=== PATIENT | female | born 1995 | race Caucasian/White ===

== ENCOUNTER 2019-06-17 02:30 | Observation (INO) | payer OTHER ==
[~2019-06-17] VITALS: Ht 157.5 cm; Wt 101.6 kg
[2019-06-17 03:56] LABS: BILIRUBIN,URINE NEGATIVE (NEGATIVE); CLARITY/URINE CLEAR (CLEAR); COLOR,URINE YELLOW (YELLOW); GLUCOSE,URINE NEGATIVE (NEGATIVE); KETONES,URINE NEGATIVE (NEGATIVE); LEUKOCYTE ESTERASE ,URINE TRACE (NEGATIVE); NITRITE, URINE NEGATIVE (NEGATIVE); PROTEIN URINE NEGATIVE (NEGATIVE); UROBILINOGEN,URINE 0.2 (0.2-1.0)
[2019-06-17 03:57] LABS: BLOOD, URINE TRACE (NEGATIVE)
[2019-06-17 04:02] LABS: BACTERIA,URINE FEW /HPF (None Seen)
[2019-06-17] MEDS ORDERED: AMPICILLIN SODIUM 250 MG VIAL IM ONE (04:15)
[2019-06-17] MEDS ORDERED: TERBUTALINE SULFATE 1 MG/ML VIAL SUBCUT PRN (04:15)
[2019-06-17] MEDS ORDERED: TERBUTALINE SULFATE 2.5 MG TABLET PO PRN (04:15)
== END 2019-06-17 05:24 | disposition home or self-care (01) ==
LOC: SPU 02:30
PROVIDERS: ADMIT Obstetrics & Gynecology; ATTEND Obstetrics & Gynecology
DX: O26.893 Other specified pregnancy related conditions, third trimester (principal); R10.9 Unspecified abdominal pain; Z3A.35 35 weeks gestation of pregnancy
CPT/HCPCS: 81000; 81002; 96372; G0378; J3105; 59899

== ENCOUNTER 2019-07-02 23:00 | Observation (INO) | payer OTHER | END 2019-07-03 09:25 | disposition home or self-care (01) | LOC: SPU 23:00 | PROVIDERS: ADMIT Obstetrics & Gynecology; ATTEND Obstetrics & Gynecology | DX: O62.9 Abnormality of forces of labor, unspecified (principal); Z3A.38 38 weeks gestation of pregnancy | CPT/HCPCS: 76819; 81002; G0378 ==

== ENCOUNTER 2021-06-21 22:10 | Inpatient (IN) | payer OTHER ==
[~2021-06-21] VITALS: Ht 154.9 cm; Wt 108.9 kg
[2021-06-21] MEDS ORDERED: MORPHINE SULFATE 10 MG/ML VIAL IVP ONE (22:30)
[2021-06-21] MEDS ORDERED: ONDANSETRON HCL 4 MG/2 ML VIAL IVP ONE (22:30)
[2021-06-21] MEDS ORDERED: NACL 0.9% 1,000 ML IV ONE (22:30)
[2021-06-21 22:51] LABS: BASOPHILS # (AUTO) 0.1 K/uL (0.0-0.2); BASOPHILS % (AUTO) 1.9 % (0.0-2.0); EOSINOPHILS # (AUTO) 0.1 K/uL (0.0-0.4); EOSINOPHILS % (AUTO) 1.6 % (0.0-4.0); HEMATOCRIT 39.3 % (36-48); HEMOGLOBIN 13.2 g/dL (12.0-16.0); LYMPHOCYTES # (AUTO) 1.5 K/uL (1.0-5.5); LYMPHOCYTES % (AUTO) 25.8 % (20.5-51.5); MEAN CORPUSCULAR HEMOGLOBIN 29 pg (27-31); MEAN CORPUSCULAR HGB CONC 34 % (32-36); MEAN CORPUSCULAR VOLUME 87 fL (79.0-98.0); MONOCYTES # (AUTO) 0.3 K/uL (0.0-1.0); MONOCYTES % (AUTO) 5.4 % (1.7-9.3); NEUTROPHILS # (AUTO) 3.7 K/uL (1.8-7.7); NEUTROPHILS % (AUTO) 65.3 % (40.0-70.0); PLATELET COUNT (AUTO) 331 K/uL (130-430); RED BLOOD CELL COUNT(AUTO) 4.52 MIL/uL (4.2-6.2); RED CELL DISTRIBUTION WIDTH 13.2 % (9.0-15.0); WHITE BLOOD COUNT (AUTO) 5.6 K/uL (4.8-10.8)
[2021-06-21 23:14] LABS: CALCIUM 8.8 mg/dL (8.4-11.0); CREATININE 0.91 mg/dL (0.55-1.30); POTASSIUM 3.4 mmol/L (3.5-5.1)
[2021-06-21 23:26] LABS: ALBUMIN 3.5 g/dL (3.4-4.8); TOTAL BILIRUBIN 4.8 mg/dL (0.0-1.0)
[2021-06-22] MEDS ORDERED: METOCLOPRAMIDE HCL 10 MG/2 ML VIAL IVP ONE
[2021-06-22 00:15] LABS: BILIRUBIN,URINE 2+ (NEGATIVE); BLOOD, URINE NEGATIVE (NEGATIVE); CLARITY/URINE CLEAR (CLEAR); COLOR,URINE YELLOW (YELLOW); GLUCOSE,URINE NEGATIVE (NEGATIVE); KETONES,URINE TRACE (NEGATIVE); LEUKOCYTE ESTERASE ,URINE 2+ (NEGATIVE); NITRITE, URINE NEGATIVE (NEGATIVE); PROTEIN URINE NEGATIVE (NEGATIVE)
[2021-06-22 00:43] LABS: BACTERIA,URINE FEW /HPF (None Seen); RBC,URINE 0-3 /HPF (0-3)
[2021-06-22] MEDS ORDERED: cefTRIAXone 1 GM in D5W 50 ML IV ONE (02:15)
[2021-06-22] MEDS ORDERED: MORPHINE 2 MG/ML INJ. SYRINGE IVP PRN ×3 (03:15→23:45)
[2021-06-22] MEDS ORDERED: D5/0.45 NS 1,000 ML IV ONE (03:15)
[2021-06-22] MEDS ORDERED: cefTRIAXone 1 GM VIAL ONE (03:22)
[2021-06-22] MEDS ORDERED: LORazepam 2 MG/ML VIAL IVP PRN (06:30)
[2021-06-22 06:35] VITALS: BP_SYST 118
[2021-06-22] MEDS ORDERED: NEOSTIGMINE METHYLSULFATE 1 MG/ML, 10 ML VIAL IVP ONE (07:15)
[2021-06-22] MEDS ORDERED: CEFAZOLIN 2 GM IVPB PREMIX 50 ML IV ONE (07:15)
[2021-06-22] MEDS ORDERED: GLYCOPYRROLATE 0.2 MG/ML VIAL IJ ONE (07:15)
[2021-06-22] MEDS ORDERED: PROPOFOL 200MG/ 20ML VIAL (DIPRIVAN) IV ONE (07:15)
[2021-06-22] MEDS ORDERED: MIDAZOLAM HCL 5 MG/5 ML VIAL IVP ONE (07:15)
[2021-06-22] MEDS ORDERED: NS IRRIG SOLN 1000 ML IR ONE (07:15)
[2021-06-22] MEDS ORDERED: LIDOCAINE/EPI 1% 1:100000 20 ML VIAL INJ ONE (07:15)
[2021-06-22] MEDS ORDERED: BUPIVACAINE /PF 0.25% 10 ML VIAL INJ ONE (07:15)
[2021-06-22] MEDS ORDERED: ROCURONIUM BROMIDE 10 MG/ML (ZEMURON) IV ONE (07:15)
[2021-06-22] MEDS ORDERED: ONDANSETRON HCL 4 MG/2 ML VIAL IVP ONE (07:15)
[2021-06-22] MEDS ORDERED: SEVOFLURANE 15 MIN GAS INH ONE (07:15)
[2021-06-22] MEDS ORDERED: fentaNYL CITRATE 250 MCG/5 ML AMP IV ONE (07:15)
[2021-06-22 08:00] VITALS: BP_SYST 121
[2021-06-22] MEDS: D5NS 1,000 ML IV SCH (18:44)
[2021-06-22 20:00] VITALS: BP_SYST 123
[2021-06-22] MEDS: ONDANSETRON HCL 4 MG/2 ML VIAL IVP PRN (22:31)
[2021-06-23] VITALS (8 sets, daily range): BP systolic 102–130
[2021-06-23 06:29] LABS: BASOPHILS % (AUTO) 0.4 % (0.0-2.0); EOSINOPHILS # (AUTO) 0.1 K/uL (0.0-0.4); EOSINOPHILS % (AUTO) 2.2 % (0.0-4.0); HEMATOCRIT 37.9 % (36-48); HEMOGLOBIN 12.5 g/dL (12.0-16.0); LYMPHOCYTES # (AUTO) 2.1 K/uL (1.0-5.5); LYMPHOCYTES % (AUTO) 36.1 % (20.5-51.5); MEAN CORPUSCULAR HEMOGLOBIN 29 pg (27-31); MEAN CORPUSCULAR HGB CONC 33 % (32-36); MEAN CORPUSCULAR VOLUME 88 fL (79.0-98.0); MONOCYTES # (AUTO) 0.5 K/uL (0.0-1.0); MONOCYTES % (AUTO) 8.7 % (1.7-9.3); NEUTROPHILS # (AUTO) 3.1 K/uL (1.8-7.7); NEUTROPHILS % (AUTO) 52.6 % (40.0-70.0); PLATELET COUNT (AUTO) 316 K/uL (130-430); RED BLOOD CELL COUNT(AUTO) 4.32 MIL/uL (4.2-6.2); RED CELL DISTRIBUTION WIDTH 13.4 % (9.0-15.0); WHITE BLOOD COUNT (AUTO) 5.8 K/uL (4.8-10.8)
[2021-06-23 06:51] LABS: ALBUMIN 2.9 g/dL (3.4-4.8); CALCIUM 8.4 mg/dL (8.4-11.0); CREATININE 0.8 mg/dL (0.55-1.30); PHOSPHORUS 3.9 mg/dL (2.7-4.5); POTASSIUM 3.3 mmol/L (3.5-5.1); TOTAL BILIRUBIN 0.7 mg/dL (0.0-1.0)
[2021-06-23 07:19] LABS: PROTHROMBIN TIME 10.2 SECS (9.5-12.5)
[2021-06-23] MEDS ORDERED: INDOMETHACIN 50 MG SUPP.RECT RC ONE (08:30)
[2021-06-23] MEDS ORDERED: KCL 40 mEq in 100 mL (PREMIX) 100 ML IV ONE (10:15)
[2021-06-23] MEDS: D5NS 1,000 ML IV SCH (10:32)
[2021-06-23] MEDS ORDERED: POTASSIUM CHLORIDE 40 MEQ in NS 250 ML IV ONE (11:00)
[2021-06-23 12:30] LABS: HCG,QUAL RESULT NEGATIVE (NEGATIVE)
[2021-06-23] MEDS ORDERED: LABETALOL 100 MG/ 20ML VIAL IVP PRN (13:15)
[2021-06-23] MEDS ORDERED: MIDAZOLAM HCL 2 MG/2 ML VIAL (VERSED) IVP PRN (13:15)
[2021-06-23] MEDS ORDERED: LR 1,000 ML IV SCH (13:15)
[2021-06-23] MEDS ORDERED: METOCLOPRAMIDE HCL 10 MG/2 ML VIAL IVP PRN (13:15)
[2021-06-23] MEDS ORDERED: hydrALAZINE HCL 20 MG/ML VIAL IVP PRN (13:15)
[2021-06-23] MEDS ORDERED: HYDROmorphone 1 MG/ML INJ. CARTRIDGE IVP PRN ×2 (13:15)
[2021-06-23] MEDS ORDERED: MEPERIDINE HCL/PF 25 MG/ML DISP.SYRIN IVP PRN (13:15)
[2021-06-23] MEDS: LR 1,000 ML IV SCH (13:45)
[2021-06-23] MEDS ORDERED: LIDOCAINE 1% 10 MG/ML, 20 ML MDV ONE (13:56)
[2021-06-23] MEDS ORDERED: METOPROLOL TARTRATE 5 MG/5 ML AMPUL ONE (13:56)
[2021-06-23] MEDS ORDERED: LR 1,000 ML IV.SOLN IV ONE (13:56)
[2021-06-23] MEDS ORDERED: DEXAMETHASONE SOD PHOSPHATE 4 MG/ML VIAL ONE (13:56)
[2021-06-23] MEDS ORDERED: ONDANSETRON HCL 4 MG/2 ML VIAL ONE (13:56)
[2021-06-23] MEDS ORDERED: KETOROLAC TROMETHAMINE 30 MG VIAL ONE (13:56)
[2021-06-23] MEDS ORDERED: KETAMINE HCL 500 MG/10 ML VIAL IVP ONE (13:56)
[2021-06-23] MEDS ORDERED: SUGAMMADEX SODIUM 200 MG/2 ML VIAL IV ONE (13:56)
[2021-06-23] MEDS ORDERED: fentaNYL CITRATE/PF 100 MCG/2 ML AMP ONE (13:56)
[2021-06-23] MEDS ORDERED: MIDAZOLAM HCL 5 MG/ML VIAL (VERSED) IV ONE (13:56)
[2021-06-23] MEDS ORDERED: PROPOFOL 200MG/ 20ML VIAL (DIPRIVAN) IV ONE (13:56)
[2021-06-23] MEDS ORDERED: DESFLURANE 15 MIN GAS INH ONE (13:56)
[2021-06-23] MEDS ORDERED: ROCURONIUM BROMIDE 10 MG/ML (ZEMURON) ONE (13:56)
[2021-06-23] MEDS: ONDANSETRON HCL 4 MG/2 ML VIAL IVP PRN (14:20)
[2021-06-23] MEDS ORDERED: METOCLOPRAMIDE HCL 10 MG/2 ML VIAL ONE (14:25)
[2021-06-23] MEDS: cefTRIAXone 1 GM in D5W 50 ML IV SCH (15:18)
[2021-06-24 00:17] VITALS: BP_SYST 120
[2021-06-24 06:51] LABS: BASOPHILS % (AUTO) 0.2 % (0.0-2.0); EOSINOPHILS % (AUTO) 0.1 % (0.0-4.0); HEMATOCRIT 38.6 % (36-48); HEMOGLOBIN 12.6 g/dL (12.0-16.0); LYMPHOCYTES # (AUTO) 1.7 K/uL (1.0-5.5); LYMPHOCYTES % (AUTO) 18.8 % (20.5-51.5); MEAN CORPUSCULAR HEMOGLOBIN 28 pg (27-31); MEAN CORPUSCULAR HGB CONC 33 % (32-36); MEAN CORPUSCULAR VOLUME 87 fL (79.0-98.0); MONOCYTES # (AUTO) 0.5 K/uL (0.0-1.0); NEUTROPHILS # (AUTO) 6.8 K/uL (1.8-7.7); NEUTROPHILS % (AUTO) 74.9 % (40.0-70.0); PLATELET COUNT (AUTO) 322 K/uL (130-430); RED BLOOD CELL COUNT(AUTO) 4.45 MIL/uL (4.2-6.2); WHITE BLOOD COUNT (AUTO) 9.1 K/uL (4.8-10.8)
[2021-06-24] MEDS ORDERED: fentaNYL CITRATE/PF 100 MCG/2 ML AMP IVP PRN ×2 (07:30)
[2021-06-24] MEDS ORDERED: ONDANSETRON HCL 4 MG/2 ML VIAL IVP PRN (07:30)
[2021-06-24] MEDS ORDERED: METOCLOPRAMIDE HCL 10 MG/2 ML VIAL IVP PRN (07:30)
[2021-06-24] MEDS ORDERED: HYDROmorphone 1 MG/ML INJ. CARTRIDGE IVP PRN (07:45)
[2021-06-24] MEDS ORDERED: HYDROcodone/ACETAMIN 5-325 MG TAB (NORCO/ VICODIN) PO PRN (07:45)
[2021-06-24 08:20] LABS: ALBUMIN 2.9 g/dL (3.4-4.8); C-REACTIVE PROTEIN QUANT 1.4 mg/dL (0-0.5); CALCIUM 8.6 mg/dL (8.4-11.0); CREATININE 0.7 mg/dL (0.55-1.30); TOTAL BILIRUBIN 0.6 mg/dL (0.0-1.0)
[2021-06-24] MEDS ORDERED: fentaNYL CITRATE/PF 100 MCG/2 ML AMP ONE (08:36)
[2021-06-24 09:41] LABS: ERYTHROCYTE SEDIMENTATION RATE 34 MM/HR (0-20)
[2021-06-24] MEDS: LR 1,000 ML IV SCH ×3 (10:26→19:30)
[2021-06-24 12:00] VITALS: BP_SYST 122
[2021-06-24] MEDS: cefTRIAXone 1 GM in D5W 50 ML IV SCH (12:36)
[2021-06-24 16:54] VITALS: BP_SYST 124
[2021-06-24 20:00] VITALS: BP_SYST 114
[2021-06-24] MEDS: ONDANSETRON HCL 4 MG/2 ML VIAL IVP PRN (20:23)
[2021-06-25 00:02] VITALS: BP_SYST 102
[2021-06-25] MEDS: LR 1,000 ML IV SCH (02:15)
[2021-06-25 06:42] LABS: BASOPHILS % (AUTO) 0.2 % (0.0-2.0); HEMATOCRIT 27.4 % (36-48); HEMOGLOBIN 9.1 g/dL (12.0-16.0); LYMPHOCYTES # (AUTO) 2.4 K/uL (1.0-5.5); LYMPHOCYTES % (AUTO) 21.8 % (20.5-51.5); MEAN CORPUSCULAR HEMOGLOBIN 29 pg (27-31); MEAN CORPUSCULAR HGB CONC 33 % (32-36); MEAN CORPUSCULAR VOLUME 87 fL (79.0-98.0); MONOCYTES # (AUTO) 0.7 K/uL (0.0-1.0); MONOCYTES % (AUTO) 6.6 % (1.7-9.3); NEUTROPHILS # (AUTO) 7.7 K/uL (1.8-7.7); NEUTROPHILS % (AUTO) 71.4 % (40.0-70.0); PLATELET COUNT (AUTO) 261 K/uL (130-430); RED BLOOD CELL COUNT(AUTO) 3.15 MIL/uL (4.2-6.2); RED CELL DISTRIBUTION WIDTH 12.9 % (9.0-15.0); WHITE BLOOD COUNT (AUTO) 10.8 K/uL (4.8-10.8)
[2021-06-25 08:46] LABS: ERYTHROCYTE SEDIMENTATION RATE 36 MM/HR (0-20)
[2021-06-25 09:11] LABS: ALBUMIN 2.6 g/dL (3.4-4.8); CALCIUM 8.3 mg/dL (8.4-11.0); CREATININE 0.78 mg/dL (0.55-1.30); TOTAL BILIRUBIN 0.4 mg/dL (0.0-1.0)
[2021-06-25 09:29] LABS: C-REACTIVE PROTEIN QUANT 2.3 mg/dL (0-0.5)
[2021-06-25] MEDS ORDERED: IBUP-1969 PO (11:58)
[2021-06-25 13:02] VITALS: BP_SYST 104
[2021-06-25] MEDS: cefTRIAXone 1 GM in D5W 50 ML IV SCH (13:20)
[2021-06-25 13:40] VITALS: BP_SYST 104
[2021-06-25 16:59] VITALS: BP_SYST 103
== END 2021-06-25 14:30 | disposition home or self-care (01) | DRG 263 ==
LOC: SED 22:10 → SMU 06-22 03:06
PROVIDERS: ADMIT Preventive Medicine Preventive Medicine/Occupational Environmental Medicine; ATTEND Preventive Medicine Preventive Medicine/Occupational Environmental Medicine
PROC: 0FC98ZZ Extirpation of Matter from Common Bile Duct, Via Natural or Artificial Opening Endoscopic (ICD-10-PCS; principal; 2021-06-23 13:03)
PROC: BF101ZZ Fluoroscopy of Bile Ducts using Low Osmolar Contrast (ICD-10-PCS; 2021-06-23 13:03)
PROC: 0FT44ZZ Resection of Gallbladder, Percutaneous Endoscopic Approach (ICD-10-PCS; 2021-06-24)
DX: K80.65 Calculus of gallbladder and bile duct with chronic cholecystitis with obstruction (principal); E43 Unspecified severe protein-calorie malnutrition; E83.41 Hypermagnesemia; E88.09 Other disorders of plasma-protein metabolism, not elsewhere classified; R17 Unspecified jaundice; E87.6 Hypokalemia; E83.52 Hypercalcemia; F12.10 Cannabis abuse, uncomplicated; R74.01 Elevation of levels of liver transaminase levels; D64.9 Anemia, unspecified; Z20.822 Contact with and (suspected) exposure to COVID-19; Z90.49 Acquired absence of other specified parts of digestive tract; Z68.42 Body mass index [BMI] 45.0-49.9, adult
CPT/HCPCS: 36415; 43264; 74181; 74330-TC; 76705; 80053; 81000; 83690; 83735; 84100; 84703; 85025; 85610-TC; 85651-TC; 86140; 87086; 88304; 96361; 96374; 96375; 99285; C1727; J0690; J0696; J1100; J1170; J1885; J2001; J2250; J2270; J2405; J2704; J2710; J2765; J3010; J3465; J3480; J3490; J7030; J7050; J7060; J7120; Q9967

== ENCOUNTER 2022-09-30 01:32 | Observation (INO) | payer OTHER ==
[~2022-09-30 01:32] MED LIST: IBUP-1969 PO
== END 2022-09-30 02:44 | disposition home or self-care (01) ==
LOC: SPU 01:32
PROVIDERS: ADMIT Obstetrics & Gynecology; ATTEND Obstetrics & Gynecology
DX: O62.9 Abnormality of forces of labor, unspecified (principal); Z3A.38 38 weeks gestation of pregnancy
CPT/HCPCS: G0379; G0378